=== PATIENT | female | born 1945 | race African-American/Black ===

== ENCOUNTER → 2017-05-05 | Outpatient (CLI) | payer MEDICARE ==
--- NOTE | 2017-05-05 12:49 | RADIOLOGY REPORT (SQ) ---
EXAM DESCRIPTION: CHEST PA/LATERAL COMPLETED DATE/TIME: 05/05/2017 12:34 pm REASON FOR STUDY: COUGH COMPARISON: None. EXAM PARAMETERS: NUMBER OF VIEWS: two views TECHNIQUE: Digital Frontal and Lateral radiographic views of the chest acquired. RADIATION DOSE: NA LIMITATIONS: none FINDINGS: LUNGS AND PLEURA: Lungs are hyperlucent in the upper lobes worrisome for obstructive disea se. There is some flattening of the hemidiaphragms. No focal infiltrates. No pleural effusions. N o pneumothorax. MEDIASTINUM AND HILAR STRUCTURES: No masses or contour abnormalities. HEART AND VASCULAR STRUCTURES: Heart normal size. No evidence for failure. BONES: No acute findings. HARDWARE: Old sternotomy post CABG OTHER: No other significant finding. IMPRESSION: Obstructive lung disease. Old sternotomy post CABG. TECHNICAL DOCUMENTATION: JOB ID: [id number] [employer]- All Rights Reserved
== END ==
LOC: OD 12:19
PROVIDERS: ATTEND Family Medicine
DX: R05 Cough (principal); J44.9 Chronic obstructive pulmonary disease, unspecified; Z95.1 Presence of aortocoronary bypass graft
CPT/HCPCS: 71020

== ENCOUNTER → 2017-06-09 | Outpatient (CLI) | payer MEDICARE ==
--- NOTE | 2017-06-09 15:50 | RADIOLOGY REPORT (SQ) ---
EXAM DESCRIPTION: CAROTID DOPPLER COMPLETED DATE/TIME: 06/09/2017 3:30 pm REASON FOR STUDY: RETINAL ARTERY OCCLUSION LEFT EYE H34.212 H34.212 PARTIAL RETINAL ARTERY OCCLUSIO N, LEFT EYE COMPARISON: None. TECHNIQUE: Grayscale ultrasound, Doppler velocity and spectra, and color Doppler images acquired of the extra-cranial carotid and vertebral arteries. Images stored on PACS. LIMITATIONS: None. FINDINGS: RIGHT CAROTID CCA Velocities: Within normal limits. ICA Velocities Peak systolic 0.73 m/s. End diastolic 0.28 m/s. Proximal ICA/CCA peak systolic ratio 0.9. There is complex plaque in the carotid bulb proximal ICA. LEFT CAROTID CCA Velocities: Within normal limits. ICA Velocities Peak systolic 0.99 m/s. End diastolic 0.21 m/s. Proximal ICA/CCA peak systolic ratio 0.6. There is complex plaque in the carotid bulb and proximal ICA. VERTEBRAL ARTERIES: Antegrade flow. Normal waveforms. SUBCLAVIAN ARTERIES: No finding. OTHER: No other significant finding. IMPRESSION: NO HEMODYNAMICALLY SIGNIFICANT STENOSIS. COMMENT: Quality ID #[id number]: Velocity criteria are extrapolated from the diameter data as defined by t he Society of Radiologists in Ultrasound Consensus Conference. Radiology 2003: 229; 340-346. TECHNICAL DOCUMENTATION: JOB ID: [id number] [employer]- All Rights Reserved
== END ==
LOC: SP 14:42
PROVIDERS: ATTEND Ophthalmology
DX: H34.212 Partial retinal artery occlusion, left eye (principal)
CPT/HCPCS: 93880

== ENCOUNTER → 2017-07-07 | Outpatient (CLI) | payer MEDICARE ==
--- NOTE | 2017-07-07 08:47 | RADIOLOGY REPORT (SQ) ---
EXAM DESCRIPTION: CT HEAD WITHOUT COMPLETED DATE/TIME: 07/07/2017 8:12 am REASON FOR STUDY: HEADACHE R51 HEADACHE COMPARISON: Carotid Doppler 06/09/2017 TECHNIQUE: Axial images acquired through the brain without intravenous contrast. Images reviewed wi th bone, brain and subdural windows. Images stored on PACS. All CT scanners at this facility use dose modulation, iterative reconstruction, and/or weight based d osing when appropriate to reduce radiation dose to as low as reasonably achievable (ALARA). [facility]: Dose Right [facility]: CareDose [facility]: Dose Right [facility]: Teradose 4D [facility]: Smart Roadster RADIATION DOSE: Up-to-date CT equipment and radiation dose reduction techniques were employed. CTDIv ol: 49.0 mGy. DLP: 881 mGy-cm. mGy. LIMITATIONS: None. FINDINGS: VENTRICLES: Normal size and contour. CEREBRUM: Extensive low attenuation in the bifrontal and biparietal white matter worrisome for advanc ed small vessel ischemic change, chronic in appearance. 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 No CT evidence of acute large territory infarct, acute intracranial hemorrhage, mass effect, or midli ne shift. CEREBELLUM: No masses. No hemorrhage. No alteration of density. No evidence for acute infarction. EXTRAAXIAL SPACES: No fluid collections. No masses. ORBITS AND GLOBE: No intra- or extraconal masses. Normal contour of globe without masses. CALVARIUM: No fracture. PARANASAL SINUSES: Minimal fluid in the right maxillary sinus SOFT TISSUES: No mass or hematoma. OTHER: No other significant finding. IMPRESSION: Advanced probably chronic white matter disease. No acute findings TECHNICAL DOCUMENTATION: JOB ID: [id number] Quality ID # [id number]: Final reports with documentation of one or more dose reduction techniques (e.g., Au tomated exposure control, adjustment of the mA and/or kV according to patient size, use of iterative reconstruction technique) 2010 [employer]- All Rights Reserved
== END ==
LOC: RAD 08:02
PROVIDERS: ATTEND Family Medicine
DX: R51 Headache (principal)
CPT/HCPCS: 70450

== ENCOUNTER → 2017-07-21 | Outpatient (CLI) | payer MEDICARE ==
--- NOTE | 2017-07-21 12:18 | RADIOLOGY REPORT (SQ) ---
EXAM DESCRIPTION: U/S ABD AORTIC SCREENING COMPLETED DATE/TIME: 07/21/2017 9:43 am REASON FOR STUDY: ENCOUNTER FOR SCREENING FOR CARDIOVASCULAR DISORDERS (Z13.6) G45.3 AMAUROSIS FUGA X Z13.6 ENCOUNTER FOR SCREENING FOR CARDIOVASCULAR DISORDERS COMPARISON: None. TECHNIQUE: Static and dynamic grayscale images acquired of the aorta and stored on PACs. Selected co dasha Doppler and spectral images recorded. LIMITATIONS: None. FINDINGS: AORTIC CALIBER MAXIMAL PROXIMAL: 2.1 cm. MID: 1.8 cm. DISTAL: 1.3 cm. ILIAC DIAMETER RIGHT: Not visualized cm. LEFT: Not visual cm. OTHER: No other significant finding. IMPRESSION: NO ABDOMINAL AORTIC ANEURYSM. TECHNICAL DOCUMENTATION: JOB ID: [id number] [employer]- All Rights Reserved
== END ==
LOC: RAD 07:55
PROVIDERS: ATTEND Internal Medicine Cardiovascular Disease
DX: Z13.6 Encounter for screening for cardiovascular disorders (principal); Z87.891 Personal history of nicotine dependence
CPT/HCPCS: 76706

== ENCOUNTER 2017-07-28 02:11 | Emergency (ER) | payer MEDICARE ==
[2017-07-28 02:24] VITALS: BP 113/63
[2017-07-28] MEDS ORDERED: ONDANSETRON HCL INJ/PF 4 MG/2 ML SDV IV ONE ×2 (02:24→03:06)
[2017-07-28] MEDS ORDERED: MORPHINE SULFATE 10 MG/ML INJ IV PRN (02:24)
[2017-07-28] MEDS ORDERED: KETOROLAC TROMETHAMINE INJ/PF 30 MG/1 ML SDV IV ONE (02:24)
[2017-07-28] MEDS ORDERED: TRAMADOL HCL 50 MG TABLET PO ONE (03:07)
[2017-07-28] MEDS ORDERED: NORMAL SALINE 500 ML IV ONE (03:07)
--- NOTE | 2017-07-28 03:13 | ER Document Report ---
ED General - General Chief Complaint: Flank Pain Stated Complaint: BACK PAIN Time Seen by Provider: 07/28/17 03:00 Notes: Patient is a 71-year-old female who presents with complaint of right low back pain. Has been on the for 2 weeks. Seem to start when she started having a lot of coughing. She also has some nausea but no vomiting. No dysuria but she has been urinating less than usual. She did see her doctor and he did obtain blood work and she supposed to follow-up in the morning for results of the test to be reevaluated. She denies any fevers. No dysuria. No abdominal pain. No pain down her legs. No other complaints at this time. No trauma. TRAVEL OUTSIDE OF THE [place] IN LAST 30 DAYS: No - Related Data Allergies/Adverse Reactions: Penicillins Allergy (Verified 07/28/17 03:59) Past Medical History - Social History Smoking Status: Unknown if Ever Smoked Frequency of alcohol use: None Drug Abuse: None Family History: Reviewed & Not Pertinent Patient has suicidal ideation: No Patient has homicidal ideation: No Renal/ Medical History: Denies: Hx Peritoneal Dialysis Review of Systems - Review of Systems Notes: My Normal Review Basic REVIEW OF SYSTEMS: CONSTITUTIONAL : Denies fever, chills, or sweats. Denies recent illness. EENT: Denies eye, ear, throat, or mouth pain or symptoms. Denies nasal or sinus congestion. CARDIOVASCULAR: Denies chest pain. RESPIRATORY: recurrent cough GASTROINTESTINAL: Denies abdominal pain. Denies nausea, vomiting, or diarrhea. GENITOURINARY: Denies difficulty urinating, painful urination, burning, frequency, or blood in urine. MUSCULOSKELETAL: Low back pain. SKIN: Denies rash or skin lesions. NEUROLOGICAL: Denies altered mental status or loss of consciousness. Denies headache. Denies weakness or paralysis or loss of use of either side. Denies problems with gait or speech. Denies sensory or motor loss. ALL OTHER SYSTEMS REVIEWED AND NEGATIVE. Physical Exam - Vital signs Vitals: Temp Pulse Resp BP Pulse Ox 97.8 F 90 16 113/63 98 07/28/17 02:19 07/28/17 02:19 07/28/17 02:19 07/28/17 02:19 07/28/17 02:19 - Notes Notes: General Appearance: Well nourished, alert, cooperative, no acute distress, moderate obvious discomfort. Vitals: reviewed, See vital signs table. Head: no swelling or tenderness to the head Eyes: PERRL, EOMI, Conjuctiva clear Mouth: No decreasd moisture Neck: Supple, no neck tenderness, Lungs: No wheezing, No rales, No rhonci, No accessory muscle use, good air exchange bilaterally. Heart: Normal rate, Regular rythm, No murmur, no rub Abdomen: Normal BS, soft, No rigidity, No abdominal tenderness, No guarding, no rebound, no abdominal masses, Back: Pinpoint area of tenderness over the right lower back flank area. There is very tender to palpation. Remainder of back is nontender. No shingles or rash-like lesions. Extremities: strength 5/5 in all extremities, good pulses in all extremities, no swelling or tenderness in the extremities, no edema. Skin: warm, dry, appropriate color, no rash Neuro: speech clear, oriented x 3, normal affect, responds appropriately to questions. Course - Re-evaluation Re-evalutation: 07/28/17 06:44 Patient has pinpoint back pain is seems very muscular skeletal on exam. Patient 's pain is easily reproducible palpation. Easily reproducible with movement. Pain was greatly improved with Ultram and she feels much improved. She does have a mild UTI. There is no blood in her urine. There is no pain radiating around her flank or into the anterior abdomen. I think kidney stone is highly unlikely. She has no leukocytosis and no fever. I will place her on pain medication as well as antibiotic. She has an appointment to follow-up with her doctor today. Patient encouraged to return to ER if she has fevers, recurrent vomiting, worsening pain, or feels unwell. Patient and family agree with plan and she will be discharged home. Dictation of this chart was performed using voice recognition software; therefore, there may be some unintended grammatical errors. - Vital Signs Vital signs: Temp Pulse Resp BP Pulse Ox 97.8 F 90 16 113/63 98 07/28/17 02:19 07/28/17 02:19 07/28/17 02:19 07/28/17 02:19 07/28/17 02:19 - Laboratory Result Diagrams: 07/28/17 03:35 07/28/17 03:35 Laboratory results interpreted by me: 07/28/17 07/28/17 07/28/17 03:35 03:35 05:14 RBC 3.53 L Hgb 10.8 L Hct 31.8 L Sodium 145.6 H Chloride 112 H Carbon Dioxide 21 L BUN 31 H Creatinine 1.46 H Est GFR ( Amer) 43 L Est GFR (Non-Af Amer) 35 L Glucose 111 H Direct Bilirubin 0.5 H Urine Urobilinogen 2.0 H Ur Leukocyte Esterase LARGE H Discharge - Discharge Clinical Impression: Nausea Back pain Qualifiers: Back pain location: low back pain Chronicity: acute Back pain laterality: right Sciatica presence: without sciatica Qualified Code(s): M54.5 - Low back pain UTI (urinary tract infection) Qualifiers: Urinary tract infection type: site unspecified Hematuria presence: without hematuria Qualified Code(s): N39.0 - Urinary tract infection, site not specified Condition: Good Disposition: HOME, SELF-CARE Additional Instructions: I suspect that most of your pain is related to the muscle in your back being that it is worse with coughing, movement, and palpation. Your urine does show some signs of infection. We will place you on an antibiotic on Cipro to help with treatment. It is extremely important that you return to the ER immediately if you develop worsening pain, fevers, vomiting, or feel unwell. The pain medicine, Ultram, may make you a little drowsy. only take this when Tylenol is not working for your pain. Prescriptions: Tramadol HCl [Ultram 50 mg Tablet] 50 mg PO Q6HP PRN #10 tablet PRN Reason: Ciprofloxacin HCl [Cipro 500 mg Tablet] 500 mg PO BID #14 tablet Ondansetron [Zofran Odt 4 mg Tablet] 1 tab PO Q4H PRN #15 tab.rapdis PRN Reason: For Nausea/Vomiting Referrals: MONI FINN MD [Primary Care Provider] - 07/28/17
[2017-07-28 03:50] LABS: ABSOLUTE BASOPHILS # (AUTO) 0.1 10^3/uL (0.0-0.2); ABSOLUTE EOSINOPHILS # (AUTO) 0.1 10^3/uL (0.0-0.6); ABSOLUTE LYMPHOCYTES (AUTO) 2.4 10^3/uL (0.5-4.7); ABSOLUTE NEUT (AUTO) 6.1 10^3/uL (1.7-8.2); BASOPHILS % (AUTO) 1.4 % (0-2); EOSINOPHILS % (AUTO) 1.2 % (0-6); HEMATOCRIT 31.8 % (36.0-47.0); HEMOGLOBIN 10.8 g/dL (12.0-15.5); HGB HCT DIFFERENCE 0.6; LYMPHOCYTES % (AUTO) 24.9 % (13-45); MEAN CORPUSCULAR HEMOGLOBIN 30.5 pg (27.0-33.4); MEAN CORPUSCULAR HGB CONC 33.8 g/dL (32.0-36.0); MEAN CORPUSCULAR VOLUME 90 fl (80-97); RED BLOOD COUNT 3.53 10^6/uL (3.72-5.28); RED CELL DISTRIBUTION WIDTH 13.9 % (11.5-14.0); SEGMENTED NEUTROPHILS % (AUTO) 62.5 % (42-78); WHITE BLOOD COUNT 9.7 10^3/uL (4.0-10.5)
[2017-07-28 04:02] LABS: ALANINE AMINOTRANSFERASE 18 U/L (9-52); ALBUMIN 3.8 g/dL (3.5-5.0); ALKALINE PHOSPHATASE 109 U/L (38-126); ANION GAP 13 (5-19); ASPARTATE AMINO TRANSFERASE 35 U/L (14-36); BILIRUBIN,DIRECT 0.5 mg/dL (0.0-0.4); BILIRUBIN,TOTAL 0.6 mg/dL (0.2-1.3); BLOOD UREA NITROGEN 31 mg/dL (7-20); CALCIUM 9.6 mg/dL (8.4-10.2); CARBON DIOXIDE 21 mmol/L (22-30); CHLORIDE 112 mmol/L (98-107); CREATININE RESULT 1.46 mg/dL (0.52-1.25); GLUCOSE 111 mg/dL (75-110); POTASSIUM 3.6 mmol/L (3.6-5.0); SODIUM 145.6 mmol/L (137-145); TOTAL PROTEIN 6.8 g/dL (6.3-8.2)
--- NOTE | 2017-07-28 04:40 | RADIOLOGY REPORT (SQ) ---
EXAM DESCRIPTION: CHEST PA/LAT COMPLETED DATE/TIME: 07/28/2017 4:23 am REASON FOR STUDY: cough COMPARISON: 05/05/2017 EXAM PARAMETERS: NUMBER OF VIEWS: two views TECHNIQUE: Digital Frontal and Lateral radiographic views of the chest acquired. RADIATION DOSE: NA LIMITATIONS: none FINDINGS: LUNGS AND PLEURA: Moderate interstitial markings. Small left basilar atelectasis or scar. MEDIASTINUM AND HILAR STRUCTURES: No masses or contour abnormalities. HEART AND VASCULAR STRUCTURES: Heart normal size. No evidence for failure. BONES: No acute findings. Mild osteoarthritis. HARDWARE: None in the chest. OTHER: No other significant finding. IMPRESSION: Small left basilar atelectasis or scar. Moderate chronic interstitial lung disease wm cartagena. TECHNICAL DOCUMENTATION: JOB ID: [id number] [employer]- All Rights Reserved
[2017-07-28 05:43] LABS: APPEARANCE,URINE SLIGHTLY-CLOUDY; BILIRUBIN,URINE NEGATIVE (NEGATIVE); GLUCOSE, URINE NEGATIVE (NEGATIVE); KETONES,URINE NEGATIVE (NEGATIVE); LEUKOCYTE ESTERASE,URINE LARGE (NEGATIVE); NITRITE,URINE NEGATIVE (NEGATIVE); PROTEIN,URINE NEGATIVE (NEGATIVE); URINE SPECIFIC GRAVITY 1.016
[2017-07-28] MEDS ORDERED: CIPROFLOXACIN HCL 500 MG TABLET PO ONE (06:12)
[2017-07-28] MEDS ORDERED: ONDANSETRON ODT 4 MG TAB (6 TAB/DSPK) PO PRN (06:32)
== END 2017-07-28 07:00 | disposition home or self-care (01) ==
LOC: ER 02:11
DX: N39.0 Urinary tract infection, site not specified (principal); M54.5 Low back pain; R11.0 Nausea
CPT/HCPCS: 99284; 96374; 36415; 87086; 85025; 80053; 81001; 71020; A9270 ×3; J2405; J7040

== ENCOUNTER → 2017-08-10 | Outpatient (CLI) | payer MEDICARE ==
[2017-08-10 09:53] LABS: ALANINE AMINOTRANSFERASE 18 U/L (9-52); ALBUMIN 3.7 g/dL (3.5-5.0); ALKALINE PHOSPHATASE 107 U/L (38-126); ASPARTATE AMINO TRANSFERASE 16 U/L (14-36); BILIRUBIN,DIRECT 0.4 mg/dL (0.0-0.4); BILIRUBIN,TOTAL 0.9 mg/dL (0.2-1.3); CHOLESTEROL 162.41 mg/dL (0-200); Direct HDL 49 mg/dL (>40); TOTAL PROTEIN 6.7 g/dL (6.3-8.2); TRIGLYCERIDES 121 mg/dL (<150)
[2017-08-10 10:04] LABS: DIRECT LDL 74 mg/dL (<100)
== END ==
LOC: OD 08:32
PROVIDERS: ATTEND Internal Medicine Cardiovascular Disease
DX: E78.00 Pure hypercholesterolemia, unspecified (principal); Z79.899 Other long term (current) drug therapy
CPT/HCPCS: 36415; 80061; 80076; 82272

== ENCOUNTER 2019-04-12 17:04 | Observation (INO) | payer MEDICARE, MEDICAID ==
[2019-04-12] MEDS ORDERED: ASPIRIN 81 MG TABLET, CHEWABLE PO ONE (17:55)
--- NOTE | 2019-04-12 17:57 | ER Document Report ---
ED Medical Screen (RME) - General Chief Complaint: Chest Pain Stated Complaint: CHEST PAIN Time Seen by Provider: 04/12/19 17:55 Primary Care Provider: YOU SCHAFER MD [Primary Care Provider] - Follow up as needed Mode of Arrival: Ambulatory Information source: Patient Notes: 73-year-old female presented to ED for chest pain since morning. She states it radiates around to the back. She denies any shortness of breath any dizziness any dyspnea or any diaphoresis. She states she has not had any aspirin today. She does have a history of high blood pressure and cholesterol. She denies any previous heart attacks. She states she smokes a pack a day but does not drink smoke or use any drugs. She denies any previous surgical history. She is alert oriented respirations regular and unlabored speaking in full sentences. I have greeted and performed a rapid initial assessment of this patient. A comprehensive ED assessment and evaluation of the patient, analysis of test results and completion of medical decision making process will be conducted by an additional ED providers. Dictation of this chart was performed using voice recognition software; therefore, there may be some unintended grammatical errors. TRAVEL OUTSIDE OF THE [place] IN LAST 30 DAYS: No - Related Data Allergies/Adverse Reactions: Penicillins Allergy (Verified 07/28/17 03:59) Past Medical History Renal/ Medical History: Denies: Hx Peritoneal Dialysis Physical Exam - Vital signs Vitals: Temp Pulse Resp BP Pulse Ox 98.6 F 60 18 152/60 H 99 04/12/19 17:25 04/12/19 17:25 04/12/19 17:25 04/12/19 17:25 04/12/19 17:25 Course - Vital Signs Vital signs: Temp Pulse Resp BP Pulse Ox 98.6 F 60 18 152/60 H 99 04/12/19 17:25 04/12/19 17:25 04/12/19 17:25 04/12/19 17:25 04/12/19 17:25 Doctor's Discharge - Discharge Referrals: YOU SCHAFER MD [Primary Care Provider] - Follow up as needed
--- NOTE | 2019-04-12 18:43 | RADIOLOGY REPORT (SQ) ---
EXAM DESCRIPTION: CHEST 2 VIEWS COMPLETED DATE/TIME: 04/12/2019 6:23 pm REASON FOR STUDY: Chest pain, denies shortness of breath. Radiates COMPARISON: 07/28/2017 EXAM PARAMETERS: NUMBER OF VIEWS: two views TECHNIQUE: Digital Frontal and Lateral radiographic views of the chest acquired. RADIATION DOSE: NA LIMITATIONS: none FINDINGS: LUNGS AND PLEURA: No opacities, masses or pneumothorax. No pleural effusion. MEDIASTINUM AND HILAR STRUCTURES: No masses or contour abnormalities. HEART AND VASCULAR STRUCTURES: Heart normal size. No evidence for failure. BONES: No acute findings. HARDWARE: Sternotomy wires are in place. OTHER: No other significant finding. IMPRESSION: NO ACUTE RADIOGRAPHIC FINDING IN THE CHEST. TECHNICAL DOCUMENTATION: JOB ID: [id number] [employer]- All Rights Reserved Reading location - IP/workstation name: [email or web address]
[2019-04-12 19:46] LABS: ABSOLUTE BASOPHILS # (AUTO) 0.1 10^3/uL (0.0-0.2); ABSOLUTE EOSINOPHILS # (AUTO) 0.1 10^3/uL (0.0-0.6); ABSOLUTE LYMPHOCYTES (AUTO) 2.6 10^3/uL (0.5-4.7); ABSOLUTE MONOCYTES (AUTO) 0.8 10^3/uL (0.1-1.4); BASOPHILS % (AUTO) 0.6 % (0-2); EOSINOPHILS % (AUTO) 1.2 % (0-6); HEMOGLOBIN 11.9 g/dL (12.0-15.5); LYMPHOCYTES % (AUTO) 30.5 % (13-45); MEAN CORPUSCULAR HEMOGLOBIN 30.2 pg (27.0-33.4); MEAN CORPUSCULAR VOLUME 91 fl (80-97); MONOCYTES % (AUTO) 8.9 % (3-13); PLATELET COUNT 351 10^3/uL (150-450); RED BLOOD COUNT 3.94 10^6/uL (3.72-5.28); SEGMENTED NEUTROPHILS % (AUTO) 58.8 % (42-78); TOTAL CELLS COUNTED % (AUTO) 100 %; WHITE BLOOD COUNT 8.6 10^3/uL (4.0-10.5)
[2019-04-12 19:49] LABS: APPEARANCE,URINE CLEAR; BILIRUBIN,URINE NEGATIVE (NEGATIVE); COLOR,URINE STRAW; GLUCOSE, URINE NEGATIVE (NEGATIVE); KETONES,URINE NEGATIVE (NEGATIVE); LEUKOCYTE ESTERASE,URINE NEGATIVE (NEGATIVE); NITRITE,URINE NEGATIVE (NEGATIVE); PROTEIN,URINE NEGATIVE (NEGATIVE); UROBILINOGEN,URINE NEGATIVE mg/dL (<2.0)
[2019-04-12 20:09] LABS: ALANINE AMINOTRANSFERASE 17 U/L (9-52); ALBUMIN 4.1 g/dL (3.5-5.0); ALKALINE PHOSPHATASE 114 U/L (38-126); ANION GAP 8 (5-19); ASPARTATE AMINO TRANSFERASE 19 U/L (14-36); BILIRUBIN,DIRECT 0.2 mg/dL (0.0-0.4); BILIRUBIN,TOTAL 0.4 mg/dL (0.2-1.3); BLOOD UREA NITROGEN 14 mg/dL (7-20); CALCIUM 10.2 mg/dL (8.4-10.2); CARBON DIOXIDE 25 mmol/L (22-30); CHLORIDE 113 mmol/L (98-107); GLUCOSE 84 mg/dL (75-110); LIPASE 124.7 U/L (23-300); POTASSIUM 3.9 mmol/L (3.6-5.0); SODIUM 145.8 mmol/L (137-145); TOTAL PROTEIN 7.2 g/dL (6.3-8.2)
[2019-04-12 20:15] LABS: CREATINE KINASE MB 1.46 ng/mL (<4.55)
[2019-04-12 20:38] LABS: TROPONIN I < 0.012 ng/mL
--- NOTE | 2019-04-12 20:46 | ER Document Report ---
ED General - General Chief Complaint: Chest Pain Stated Complaint: CHEST PAIN Time Seen by Provider: 04/12/19 17:55 Primary Care Provider: YOU SCHAFER MD [Primary Care Provider] - Follow up as needed Mode of Arrival: Ambulatory Notes: 73-year-old female with coronary artery disease cardiac stents placed in 2003, hypertension, and hyperlipidemia presents to ED for chest pain since morning. S he states it radiates around to the back on the right side and is now in her left axilla area that moves around to her back. She states it is worse with movement. She did not describe the quality of it.. She denies any shortness of breath but does complain of dyspnea on exertion, denies diaphoresis, denies nausea. Denies headache, dizziness, lightheadedness, abdominal pain, flank pain, urinary symptoms patient is a daily smoker. She received aspirin in triage. No other complaints. TRAVEL OUTSIDE OF THE [place] IN LAST 30 DAYS: No - Related Data Allergies/Adverse Reactions: Penicillins Allergy (Verified 07/28/17 03:59) Past Medical History - General Information source: Patient - Social History Smoking Status: Current Every Day Smoker Family History: Reviewed & Not Pertinent Renal/ Medical History: Denies: Hx Peritoneal Dialysis Review of Systems - Review of Systems Constitutional: See HPI EENT: See HPI Cardiovascular: See HPI Respiratory: See HPI Gastrointestinal: See HPI Genitourinary: See HPI Female Genitourinary: No symptoms reported Musculoskeletal: No symptoms reported Skin: No symptoms reported Hematologic/Lymphatic: No symptoms reported Neurological/Psychological: See HPI Physical Exam - Vital signs Vitals: Temp Pulse Resp BP Pulse Ox 98.6 F 60 18 152/60 H 99 04/12/19 17:25 04/12/19 17:25 04/12/19 17:25 04/12/19 17:25 04/12/19 17:25 - Notes Notes: PHYSICAL EXAMINATION: Reviewed vital signs and charting by RN GENERAL: Alert, interacts well. No acute distress. HEAD: Normocephalic, atraumatic. EYES: Pupils equal and round. Extraocular movements intact. ENT: Oral mucosa moist, tongue midline. NECK: Full range of motion. Supple. Trachea midline. LUNGS: Clear to auscultation bilaterally, no wheezes, rales, or rhonchi. No respiratory distress. HEART: Regular rate and rhythm. No murmur ABDOMEN: soft, non-tender. Non-distended. Bowel sounds present. no McBurney's point tenderness, no Norton sign. EXTREMITIES: Moves all 4 extremities spontaneously. No edema, No cyanosis. Normal distal neurovascular exam BACK: No CVAT NEUROLOGIC: Oriented and appropriate. Normal speech. PSYCH: Normal affect, normal mood. SKIN: Warm, dry, normal turgor. No rashes or lesions noted. Course - Re-evaluation Re-evalutation: 04/12/19 20:44 Overall well-appearing. Patient with reproducible back pain and left axilla pain on movement. Initial troponin negative. Heart score 4 for suspicion factors, age. 04/12/19 20:[address] Khan, hospitalist, who accepted the patient for observation status on telemetry. - Vital Signs Vital signs: Temp Pulse Resp BP Pulse Ox 98.6 F 60 18 152/60 H 99 04/12/19 17:25 04/12/19 17:25 04/12/19 17:25 04/12/19 17:25 04/12/19 17:25 - Laboratory Result Diagrams: 04/12/19 19:30 04/12/19 19:30 Laboratory results interpreted by me: 04/12/19 04/12/19 04/12/19 19:30 19:30 19:30 Hgb 11.9 L RDW 15.0 H Sodium 145.8 H Chloride 113 H Urine Blood SMALL H Discharge - Discharge Clinical Impression: Chest pain Qualifiers: Chest pain type: unspecified Qualified Code(s): R07.9 - Chest pain, unspecified Condition: Stable Disposition: ADMITTED OBSERVATION Admitting Provider: Bill (Hospitalist) Unit Admitted: Telemetry Referrals: YOU SCHAFER MD [Primary Care Provider] - Follow up as needed
[2019-04-12] MEDS ORDERED: ZOLPIDEM TARTRATE 5 MG TABLET PO PRN (21:26)
[2019-04-12] MEDS ORDERED: MAGNESIUM HYDROXIDE SUSP 30 ML UDCUP PO PRN (21:26)
[2019-04-12] MEDS ORDERED: ONDANSETRON HCL INJ/PF 4 MG/2 ML SDV IV PRN (21:26)
[2019-04-12] MEDS ORDERED: MAG HYDROX/AL HYDROX/SIMETH SUSP 30 ML UDCUP PO PRN (21:26)
[2019-04-12] MEDS ORDERED: IBUPROFEN 800 MG TABLET PO PRN (21:30)
[2019-04-12] MEDS ORDERED: LEVALBUTEROL HCL NEB 0.63 MG/3 ML AMPUL NEB PRN (21:30)
[2019-04-12] MEDS ORDERED: HYDRALAZINE HCL INJ/PF 20 MG/1 ML SDV IV PRN (21:30)
[2019-04-12] MEDS ORDERED: MORPHINE SULFATE 10 MG/ML INJ IV PRN ×4 (21:30→21:43)
[2019-04-12] MEDS ORDERED: NICOTINE 21 MG/24 HR PATCH.TD24 TD PRN (21:41)
[2019-04-12] MEDS: FAMOTIDINE 20 MG TABLET PO SCH (22:00)
[2019-04-12] MEDS: HEPARIN SOD (PORCINE) 5,000 UNIT/ML 1 ML SYRINGE SUBCUT SCH (22:01)
[2019-04-13] MEDS: ACETAMINOPHEN 325 MG TABLET PO PRN ×3 (00:32→19:49)
--- NOTE | 2019-04-13 02:03 | PDOC H&P ---
History of Present Illness Admission Date/PCP: 04/12/2019 YOU SCHAFER MD Patient complains of: Chest pain History of Present Illness: WENCESLAO HAYES is a 73 year old female who presented to the emergency room with a 12-hour history of continuous chest pain initially beginning in the right anterior chest moving around gradually throughout the day first to the right shoulder and back and then gradually to the left shoulder and currently to the left side in the axillary area and now radiating into her left and mid back. She describes the pain as a moderate to severe "sharp pain" intensified by movement of her chest, arms or back. She has not identified any ameliorating factors. She notes associated mild swelling of her lower extremities and mild dyspnea with exertion but denies dyspnea at rest. She admits similar prior episodes related to her coronary artery disease. In the emergency room she was found to have negative cardiac enzymes and her EKG showed no evidence of acute myocardial infarction or ischemia. Her chest x-ray and the remainder of her laboratory evaluation were unremarkable. Due to her personal history of coronary artery disease she is admitted to observation status for serial cardiac enzyme testing and serial EKGs. Past Medical History Cardiac Medical History: Reports: Coronary Artery Disease, Myocardial Infarction, Hyperlipidema, Hypertension Denies: Atrial Fibrillation, Congestive Heart Failure Pulmonary Medical History: Denies: Asthma, Chronic Obstructive Pulmonary Disease (COPD) EENT Medical History: Reports: Cataracts, Eyes - Amaurosis fugax left eye Neurological Medical History: Denies: Hemorrhagic CVA, Ischemic CVA, Seizures Endocrine Medical History: Denies: Diabetes Mellitus Type 1, Diabetes Mellitus Type 2 Renal/ Medical History: Denies: Chronic Kidney Disease, Nephrolithiasis Malignancy Medical History: Reports: None GI Medical History: Denies: Cirrhosis, Hepatitis Musculoskeltal Medical History: Denies: Arthritis, Gout Skin Medical History: Denies: Eczema, Psoriasis Psychiatric Medical History: Reports: Tobacco Dependency Denies: Alcohol Dependency, Substance Abuse Traumatic Medical History: Reports: None Hematology: Denies: Anemia, Bleeding Tendencies Infectious Medical History: Reports: None Past Surgical History Past Surgical History: Reports: Cardiac Catheterization, Coronary Stent, Other - Bilateral cataract excision with lens replacement Social History Information Source: Patient Lives with: Alone Smoking Status: Current Every Day Smoker Frequency of Alcohol Use: None Hx Recreational Drug Use: No Drugs: None Hx Prescription Drug Abuse: No - Advance Directive Resuscitation Status: Full Code Surrogate healthcare decision maker:: Bhumi Hayes Family History Family History: Hypertension. denies: CAD, DM, Malignancy Parental Family History Reviewed: Yes Children Family History Reviewed: No Sibling(s) Family History Reviewed.: Yes Medication/Allergy Home Medications: Atorvastatin Calcium [Lipitor 10 mg Tablet] 10 mg PO QHS 04/12/19 Diclofenac Sodium 75 mg PO Q12 04/12/19 Metoprolol Succinate [Toprol Xl 25 mg Tab.sr] 25 mg PO DAILY 04/12/19 Montelukast Sodium [Singulair 10 mg Tablet] 10 mg PO QHS 04/12/19 Allergies/Adverse Reactions: Penicillins Allergy (Verified 07/28/17 03:59) Review of Systems Constitutional: ABSENT: chills, fever(s) Eyes: ABSENT: visual disturbances, other - Ocular pain Ears: ABSENT: hearing changes, other - Ear pain Nose, Mouth, and Throat: ABSENT: mouth pain, sore throat Cardiovascular: PRESENT: as per HPI, chest pain, dyspnea on exertion, edema. ABSENT: orthropnea, palpitations Respiratory: ABSENT: cough, dyspnea Gastrointestinal: ABSENT: abdominal pain, constipation, diarrhea, nausea, vomiting Genitourinary: ABSENT: dysuria, hematuria Musculoskeletal: PRESENT: as per HPI, back pain. ABSENT: joint swelling, muscle weakness Integumentary: ABSENT: pruritus, rash Neurological: ABSENT: confusion, convulsions, focal weakness, memory loss, syncope Psychiatric: ABSENT: anxiety, depression Endocrine: ABSENT: cold intolerance, heat intolerance Hematologic/Lymphatic: ABSENT: easy bleeding, easy bruising Physical Exam Vital Signs: Temp Pulse Resp BP Pulse Ox 98.6 F 60 18 152/60 H 99 04/12/19 17:25 04/12/19 17:25 04/12/19 17:25 04/12/19 17:25 04/12/19 17:25 Intake & Output 04/10/19 04/11/19 04/12/19 23:59 23:59 23:59 Weight 73.4 kg General appearance: PRESENT: no acute distress, cooperative Head exam: PRESENT: atraumatic, normocephalic Eye exam: ABSENT: conjunctival injection, scleral icterus Ear exam: PRESENT: normal external ear exam. ABSENT: bleeding, drainage Mouth exam: PRESENT: dry mucosa, neck supple Neck exam: ABSENT: thyromegaly, tracheal deviation Respiratory exam: PRESENT: decreased breath sounds - Mildly decreased breath sounds throughout all ibarra consistent with mild to moderate COPD, prolonged expiratory phas - Minimally prolonged expiratory phase noted throughout all ibar[place], rhonchi - Few scattered rhonchi present, symmetrical, unlabored, other - Chest pain increased with deep inspiration reproducing the pain of her chief complaint Cardiovascular exam: PRESENT: RRR. ABSENT: clicks, gallop, rubs Pulses: PRESENT: normal radial pulses, normal dorsalis pedis pul Vascular exam: PRESENT: normal capillary refill. ABSENT: pallor GI/Abdominal exam: PRESENT: normal bowel sounds, soft Rectal exam: PRESENT: deferred Extremities exam: PRESENT: pedal edema - Trace bilateral, +1 edema - Trace to 1+ pretibial edema of the bilateral lower extremities.. ABSENT: joint swelling Musculoskeletal exam: PRESENT: full ROM, normal inspection Neurological exam: PRESENT: alert, oriented to person, oriented to place, oriented to time, oriented to situation, CN II-XII grossly intact. ABSENT: motor sensory deficit Psychiatric exam: PRESENT: appropriate affect, normal mood Skin exam: PRESENT: dry, intact, warm. ABSENT: jaundice, rash, urticaria Results Laboratory Results: 04/12/19 19:30 04/12/19 19:30 04/12/19 04/12/19 04/12/19 19:30 19:30 19:30 WBC 8.6 RBC 3.94 Hgb 11.9 L Hct 36.0 MCV 91 MCH 30.2 MCHC 33.0 RDW 15.0 H Plt Count 351 Seg Neutrophils % 58.8 Lymphocytes % 30.5 Monocytes % 8.9 Eosinophils % 1.2 Basophils % 0.6 Absolute Neutrophils 5.0 Absolute Lymphocytes 2.6 Absolute Monocytes 0.8 Absolute Eosinophils 0.1 Absolute Basophils 0.1 Sodium 145.8 H Potassium 3.9 Chloride 113 H Carbon Dioxide 25 Anion Gap 8 BUN 14 Creatinine 0.89 Est GFR ( Amer) > 60 Est GFR (Non-Af Amer) > 60 Glucose 84 Calcium 10.2 Total Bilirubin 0.4 AST 19 ALT 17 Alkaline Phosphatase 114 Total Protein 7.2 Albumin 4.1 Lipase 124.7 Urine Color STRAW Urine Appearance CLEAR Urine pH 5.0 Ur Specific [place] 1.010 Urine Protein NEGATIVE Urine Glucose (UA) NEGATIVE Urine Ketones NEGATIVE Urine Blood SMALL H Urine Nitrite NEGATIVE Ur Leukocyte Esterase NEGATIVE Urine WBC (Auto) 0 Urine RBC (Auto) 1 04/12/19 19:30 CK-MB (CK-2) 1.46 Troponin I < 0.012 Impressions: Chest X-Ray 04/12/19 17:55 IMPRESSION: NO ACUTE RADIOGRAPHIC FINDING IN THE CHEST. Assessment and Plan - Diagnosis (1) Chest pain Qualifiers: Chest pain type: unspecified Qualified Code(s): R07.9 - Chest pain, unspecified Is this a current diagnosis for this admission?: Yes Plan: Patient chest pain be treated with morphine 2 to 4 mg IV every 2 hours as needed for chest pain. For mild to moderate pain she may use Tylenol and/or tramadol. (2) Coronary artery disease Qualifiers: Coronary Disease-Associated Artery/Lesion type: [place] artery [place] vs. transplanted heart: redding heart Associated angina: angina presence unspecified Qualified Code(s): I25.10 - Atherosclerotic heart disease of [place] coronary artery without angina pectoris Is this a current diagnosis for this admission?: Yes Plan: Serial cardiac enzymes will be performed and serial EKGs will be obtained. A thyroid profile and lipid profile will be obtained as part of the evaluation of her coronary artery disease and ongoing treatment. (3) Tobacco use disorder, severe, dependence Is this a current diagnosis for this admission?: Yes Plan: Smoking cessation is advised and counseled briefly. A nicotine patch to be available for the patient's use. (4) Hypernatremia Is this a current diagnosis for this admission?: Yes Plan: Patient's metabolic profile will be reevaluated in the morning to determine the status of her electrolyte balance. (5) HLD (hyperlipidemia) Qualifiers: Hyperlipidemia type: unspecified Qualified Code(s): E78.5 - Hyperlipidemia, unspecified Is this a current diagnosis for this admission?: Yes Plan: Patient will be continued with her current lipid therapy treatment (when confirmed on medication reconciliation) including a cardiac diet. A lipid panel will be obtained to assess the efficacy of current therapy. A thyroid profile will also be obtained due to the relationship between thyroid disease and hyperlipidemia. (6) HTN (hypertension) Qualifiers: Hypertension type: essential hypertension Qualified Code(s): I10 - Essential (primary) hypertension Is this a current diagnosis for this admission?: Yes Plan: Patient will be continued on her current antihypertensive regiment once it is available per her medication reconciliation. - Time Time Spent with patient: 25-34 minutes Smoking Cessation Education: 3 to 10 minutes Anticipated discharge: Home Within: within 24 hours - Inpatient Certification Based on my medical assessment, after consideration of the patient's comorbidities, presenting symptoms, or acuity I expect that the services needed warrant INPATIENT care.: No I certify that my determination is in accordance with my understanding of Medicare's requirements for reasonable and necessary INPATIENT services [42 CFR 412.3e].: No Medical Necessity: Need Close Monitoring Due to Risk of Patient Decompensation, Need For Continuous Telemetry Monitoring, Need for Pain Control, Risk of Complication if Not Cared For in Hospital
[2019-04-13 02:14] LABS: FREE T3 3.25 pg/mL (2.77-5.27); FREE T4 (FREE THYROXINE) 1.71 ng/dL (0.78-2.19)
[2019-04-13 02:16] LABS: CREATINE KINASE MB 1.21 ng/mL (<4.55)
[2019-04-13 02:20] LABS: TROPONIN I < 0.012 ng/mL
[2019-04-13] MEDS: HEPARIN SOD (PORCINE) 5,000 UNIT/ML 1 ML SYRINGE SUBCUT SCH ×3 (05:31→22:04)
--- NOTE | 2019-04-13 07:31 | EKG REPORT ---
SEVERITY:- ABNORMAL ECG - SINUS RHYTHM LOW VOLTAGE EKG NONSPECIFIC ST-T CHANGES ANTEROLATERAL LEADS UNCHANGED FROM YESTERDAY.. : Confirmed by: Asaf Hollingsworth MD 13-Apr-2019 07:30:48
--- NOTE | 2019-04-13 07:31 | EKG REPORT ---
SEVERITY:- ABNORMAL ECG - SINUS RHYTHM ABNORMAL T, CONSIDER ISCHEMIA, LATERAL LEADS : Confirmed by: Asaf Hollingsworth MD 13-Apr-2019 07:30:59
[2019-04-13 07:33] LABS: HEMATOCRIT 30.9 % (36.0-47.0); HEMOGLOBIN 10.3 g/dL (12.0-15.5); MEAN CORPUSCULAR HGB CONC 33.4 g/dL (32.0-36.0); MEAN CORPUSCULAR VOLUME 90 fl (80-97); PLATELET COUNT 299 10^3/uL (150-450); RED BLOOD COUNT 3.44 10^6/uL (3.72-5.28); RED CELL DISTRIBUTION WIDTH 15.4 % (11.5-14.0)
[2019-04-13 07:56] LABS: ANION GAP 7 (5-19); BLOOD UREA NITROGEN 16 mg/dL (7-20); CALCIUM 9.3 mg/dL (8.4-10.2); CARBON DIOXIDE 22 mmol/L (22-30); CHLORIDE 114 mmol/L (98-107); CREATINE KINASE 151 U/L (30-135); GLUCOSE 94 mg/dL (75-110); POTASSIUM 3.7 mmol/L (3.6-5.0); SODIUM 143.3 mmol/L (137-145); TRIGLYCERIDES 119 mg/dL (<150)
[2019-04-13 08:06] LABS: CREATINE KINASE MB 0.98 ng/mL (<4.55)
[2019-04-13 08:07] LABS: DIRECT LDL 119 mg/dL (<100); TROPONIN I < 0.012 ng/mL
[2019-04-13] MEDS: TRAMADOL HCL 50 MG TABLET PO PRN ×2 (10:01→18:04)
[2019-04-13] MEDS: DOCUSATE SODIUM 100 MG CAPSULE PO SCH ×2 (10:02→18:05)
[2019-04-13] MEDS: FAMOTIDINE 20 MG TABLET PO SCH ×2 (10:02→22:05)
--- NOTE | 2019-04-13 12:24 | PDOC PROGRESS REPORT ---
Subjective Progress Note for:: 04/13/19 Subjective:: BRAD HAYES is a 73 year old female who presented to the emergency room with a 12-hour history of continuous chest pain initially beginning in the right anterior chest moving around gradually throughout the day first to the right shoulder and back and then gradually to the left shoulder and currently to the left side in the axillary area and now radiating into her left and mid back. She describes the pain as a moderate to severe "sharp pain" intensified by move ment of her chest, arms or back. She has not identified any ameliorating factors. She notes associated mild swelling of her lower extremities and mild dyspnea with exertion but denies dyspnea at rest. She admits similar prior episodes related to her coronary artery disease. In the emergency room she was found to have negative cardiac enzymes and her EKG showed no evidence of acute myocardial infarction or ischemia. Her chest x-ray and the remainder of her laboratory evaluation were unremarkable. Due to her personal history of coronary artery disease she is admitted to observation status for serial cardiac enzyme testing and serial EKGs. 04/13/2019. No acute events overnight. She has not had recurrence of her chest pain however she is stating that she her chest pain is constant, sharp, worse with movement and coughing, today was on the right side and moved to the left side and radiating to the left shoulder. Denies any fever, cough, chills, nausea, vomiting, diarrhea, constipation or any urinary symptoms. SBP 50905, T-max 98.5, pulse 70s, RR 14-23, SPO2 100% on RA. WBC 7.0, hemoglobin 10.3, platelets 299, sodium 143, potassium 3.7, bicarb 22, creatinine 1.10, troponins < 0.0122, Reason For Visit: CHEST PAIN Physical Exam Vital Signs: Temp Pulse Resp BP Pulse Ox 98.5 F 69 17 111/55 L 99 04/13/19 03:43 04/13/19 03:43 04/13/19 03:43 04/13/19 03:43 04/13/19 03:43 Intake & Output 04/12/19 04/13/19 04/14/19 06:59 06:59 06:59 Intake Total 320 Balance 320 Weight 75.2 kg General appearance: PRESENT: obese Head exam: PRESENT: atraumatic, normocephalic Respiratory exam: PRESENT: clear to auscultation dago. ABSENT: rales, rhonchi, wheezes Cardiovascular exam: PRESENT: RRR, other - Chest wall tenderness bilaterally.. ABSENT: diastolic murmur, rubs, systolic murmur GI/Abdominal exam: PRESENT: normal bowel sounds, soft. ABSENT: distended, guarding, mass, organolmegaly, rebound, tenderness Extremities exam: PRESENT: full ROM. ABSENT: calf tenderness, clubbing, pedal edema Neurological exam: PRESENT: alert, awake, oriented to person, oriented to place, oriented to time, oriented to situation, CN II-XII grossly intact. ABSENT: motor sensory deficit Results Laboratory Results: 04/13/19 07:02 04/13/19 07:02 04/12/19 04/12/19 04/12/19 19:30 19:30 19:30 WBC 8.6 RBC 3.94 Hgb 11.9 L Hct 36.0 MCV 91 MCH 30.2 MCHC 33.0 RDW 15.0 H Plt Count 351 Seg Neutrophils % 58.8 Lymphocytes % 30.5 Monocytes % 8.9 Eosinophils % 1.2 Basophils % 0.6 Absolute Neutrophils 5.0 Absolute Lymphocytes 2.6 Absolute Monocytes 0.8 Absolute Eosinophils 0.1 Absolute Basophils 0.1 Sodium 145.8 H Potassium 3.9 Chloride 113 H Carbon Dioxide 25 Anion Gap 8 BUN 14 Creatinine 0.89 Est GFR ( Amer) > 60 Est GFR (Non-Af Amer) > 60 Glucose 84 Calcium 10.2 Magnesium Total Bilirubin 0.4 AST 19 ALT 17 Alkaline Phosphatase 114 Total Protein 7.2 Albumin 4.1 Triglycerides Cholesterol LDL Cholesterol Direct VLDL Cholesterol HDL Cholesterol Lipase 124.7 TSH Free T4 Free T3 pg/mL Urine Color STRAW Urine Appearance CLEAR Urine pH 5.0 Ur Specific [place] 1.010 Urine Protein NEGATIVE Urine Glucose (UA) NEGATIVE Urine Ketones NEGATIVE Urine Blood SMALL H Urine Nitrite NEGATIVE Ur Leukocyte Esterase NEGATIVE Urine WBC (Auto) 0 Urine RBC (Auto) 1 04/13/19 04/13/19 04/13/19 01:21 07:02 07:02 WBC 7.0 RBC 3.44 L Hgb 10.3 L Hct 30.9 L MCV 90 MCH 30.0 MCHC 33.4 RDW 15.4 H Plt Count 299 Seg Neutrophils % Lymphocytes % Monocytes % Eosinophils % Basophils % Absolute Neutrophils Absolute Lymphocytes Absolute Monocytes Absolute Eosinophils Absolute Basophils Sodium 143.3 Potassium 3.7 Chloride 114 H Carbon Dioxide 22 Anion Gap 7 BUN 16 Creatinine 1.10 Est GFR ( Amer) 59 L Est GFR (Non-Af Amer) 49 L Glucose 94 Calcium 9.3 Magnesium 2.0 Total Bilirubin AST ALT Alkaline Phosphatase Total Protein Albumin Triglycerides 119 Cholesterol 195.70 LDL Cholesterol Direct 119 H VLDL Cholesterol 24.0 HDL Cholesterol 44 Lipase TSH Free T4 1.71 Free T3 pg/mL 3.25 Urine Color Urine Appearance Urine pH Ur Specific [place] Urine Protein Urine Glucose (UA) Urine Ketones Urine Blood Urine Nitrite Ur Leukocyte Esterase Urine WBC (Auto) Urine RBC (Auto) 04/13/19 07:02 WBC RBC Hgb Hct MCV MCH MCHC RDW Plt Count Seg Neutrophils % Lymphocytes % Monocytes % Eosinophils % Basophils % Absolute Neutrophils Absolute Lymphocytes Absolute Monocytes Absolute Eosinophils Absolute Basophils Sodium Potassium Chloride Carbon Dioxide Anion Gap BUN Creatinine Est GFR ( Amer) Est GFR (Non-Af Amer) Glucose Calcium Magnesium Total Bilirubin AST ALT Alkaline Phosphatase Total Protein Albumin Triglycerides Cholesterol LDL Cholesterol Direct VLDL Cholesterol HDL Cholesterol Lipase TSH 0.84 Free T4 Free T3 pg/mL Urine Color Urine Appearance Urine pH Ur Specific [place] Urine Protein Urine Glucose (UA) Urine Ketones Urine Blood Urine Nitrite Ur Leukocyte Esterase Urine WBC (Auto) Urine RBC (Auto) 04/12/19 04/13/19 04/13/19 19:30 01:21 01:21 Creatine Kinase 186 H CK-MB (CK-2) 1.46 1.21 Troponin I < 0.012 < 0.012 04/13/19 04/13/19 07:02 07:02 Creatine Kinase 151 H CK-MB (CK-2) 0.98 Troponin I < 0.012 Impressions: Chest X-Ray 04/12/19 17:55 IMPRESSION: NO ACUTE RADIOGRAPHIC FINDING IN THE CHEST. Assessment and Plan - Diagnosis (1) Chest pain Qualifiers: Chest pain type: unspecified Qualified Code(s): R07.9 - Chest pain, unspecified Is this a current diagnosis for this admission?: Yes Plan: Most likely noncardiac however she has HEART Score 4 04/13/2019: SBP 97715, T-max 98.5, pulse 70s, RR 14-23, SPO2 100% on RA. Troponins < 0.0122, DAPT, beta-blockers, MANOLO, supplemental oxygen, PRN morphine, sublingual nitrates. Will order stress test for further risk stratification. (2) HLD (hyperlipidemia) Qualifiers: Hyperlipidemia type: unspecified Qualified Code(s): E78.5 - Hyperlipidemia, unspecified Is this a current diagnosis for this admission?: Yes Plan: ASCVD Score 18.4% Start high intensity statins. Continue diet and lifestyle modification. TSH/T3/T4 within normal limits. (3) HTN (hypertension) Qualifiers: Hypertension type: essential hypertension Qualified Code(s): I10 - Ess ential (primary) hypertension Is this a current diagnosis for this admission?: Yes Plan: Normotensive, euvolemic. 04/13/2019: SBP 79431, T-max 98.5, pulse 70s, RR 14-23, SPO2 100% on RA. Troponins < 0.0122, Restart home meds, titrate as needed. Outpatient PCP follow-up. (4) Coronary artery disease Qualifiers: Coronary Disease-Associated Artery/Lesion type: [place] artery [place] vs. transplanted heart: [place] heart Associated angina: angina presence unspecified Qualified Code(s): I25.10 - Atherosclerotic heart disease of [place] coronary artery without angina pectoris Is this a current diagnosis for this admission?: Yes Plan: Restart DAPT, beta-blockers, MANOLO, statins. 04/13/2019: SBP 73171, T-max 98.5, pulse 70s, RR 14-23, SPO2 100% on RA. Troponins < 0.0122, Thyroid panel negative. (5) Tobacco use disorder, severe, dependence Is this a current diagnosis for this admission?: Yes Plan: Counseled on quitting. Continue NicoDerm patch.
[2019-04-13 13:51] LABS: TROPONIN I < 0.012 ng/mL
[2019-04-13] MEDS: METOPROLOL TARTRATE 25 MG TABLET PO SCH (22:04)
[2019-04-13] MEDS: IBUPROFEN 400 MG TABLET PO PRN (22:06)
[2019-04-14] MEDS: PANTOPRAZOLE SODIUM 40 MG TABLET.DR PO SCH (05:10)
[2019-04-14] MEDS: HEPARIN SOD (PORCINE) 5,000 UNIT/ML 1 ML SYRINGE SUBCUT SCH ×3 (05:10→22:04)
[2019-04-14 06:57] LABS: ABSOLUTE EOSINOPHILS # (AUTO) 0.1 10^3/uL (0.0-0.6); ABSOLUTE LYMPHOCYTES (AUTO) 1.8 10^3/uL (0.5-4.7); ABSOLUTE MONOCYTES (AUTO) 0.5 10^3/uL (0.1-1.4); ABSOLUTE NEUT (AUTO) 2.3 10^3/uL (1.7-8.2); BASOPHILS % (AUTO) 0.9 % (0-2); EOSINOPHILS % (AUTO) 1.7 % (0-6); HEMATOCRIT 30.8 % (36.0-47.0); HEMOGLOBIN 10.4 g/dL (12.0-15.5); LYMPHOCYTES % (AUTO) 38.8 % (13-45); MEAN CORPUSCULAR HEMOGLOBIN 30.4 pg (27.0-33.4); MEAN CORPUSCULAR HGB CONC 33.7 g/dL (32.0-36.0); MEAN CORPUSCULAR VOLUME 90 fl (80-97); MONOCYTES % (AUTO) 10.1 % (3-13); PLATELET COUNT 253 10^3/uL (150-450); RED BLOOD COUNT 3.41 10^6/uL (3.72-5.28); RED CELL DISTRIBUTION WIDTH 15.2 % (11.5-14.0); SEGMENTED NEUTROPHILS % (AUTO) 48.5 % (42-78); TOTAL CELLS COUNTED % (AUTO) 100 %; WHITE BLOOD COUNT 4.7 10^3/uL (4.0-10.5)
[2019-04-14 07:14] LABS: ALANINE AMINOTRANSFERASE 16 U/L (9-52); ALKALINE PHOSPHATASE 83 U/L (38-126); ANION GAP 5 (5-19); ASPARTATE AMINO TRANSFERASE 16 U/L (14-36); BILIRUBIN,DIRECT 0.2 mg/dL (0.0-0.4); BILIRUBIN,TOTAL 0.4 mg/dL (0.2-1.3); BLOOD UREA NITROGEN 16 mg/dL (7-20); CALCIUM 9.2 mg/dL (8.4-10.2); CARBON DIOXIDE 22 mmol/L (22-30); CHLORIDE 115 mmol/L (98-107); GLUCOSE 87 mg/dL (75-110); POTASSIUM 3.9 mmol/L (3.6-5.0); SODIUM 142.2 mmol/L (137-145); TOTAL PROTEIN 5.6 g/dL (6.3-8.2)
[2019-04-14] MEDS ORDERED: METOPROLOL SUCCINATE 25 MG TAB.SR.24H PO SCH (10:00)
[2019-04-14] MEDS ORDERED: LISINOPRIL 5 MG TABLET PO SCH (10:00)
[2019-04-14] MEDS ORDERED: AMLODIPINE BESYLATE 10 MG TABLET PO SCH (10:00)
[2019-04-14] MEDS: DOCUSATE SODIUM 100 MG CAPSULE PO SCH ×2 (10:12→16:59)
[2019-04-14] MEDS: FAMOTIDINE 20 MG TABLET PO SCH ×2 (10:12→22:05)
[2019-04-14] MEDS: METOPROLOL TARTRATE 25 MG TABLET PO SCH ×2 (10:12→21:46)
[2019-04-14] MEDS: ALLOPURINOL 300 MG TABLET PO SCH (10:12)
[2019-04-14] MEDS: LISINOPRIL 5 MG TABLET PO SCH (10:12)
[2019-04-14] MEDS: CLOPIDOGREL BISULFATE 75 MG TABLET PO SCH (10:13)
[2019-04-14] MEDS: ASPIRIN 81 MG TABLET, ENT COATED PO SCH (10:13)
[2019-04-14] MEDS: IBUPROFEN 400 MG TABLET PO PRN ×2 (10:18→22:17)
[2019-04-14] MEDS ORDERED: ONDANSETRON HCL INJ/PF 4 MG/2 ML SDV IV PRN (12:30)
--- NOTE | 2019-04-14 13:13 | PDOC PROGRESS REPORT ---
Subjective Progress Note for:: 04/14/19 Subjective:: BRAD HAYES is a 73 year old female who presented to the emergency room with a 12-hour history of continuous chest pain initially beginning in the right anterior chest moving around gradually throughout the day first to the right shoulder and back and then gradually to the left shoulder and currently to the left side in the axillary area and now radiating into her left and mid back. She describes the pain as a moderate to severe "sharp pain" intensified by move ment of her chest, arms or back. She has not identified any ameliorating factors. She notes associated mild swelling of her lower extremities and mild dyspnea with exertion but denies dyspnea at rest. She admits similar prior episodes related to her coronary artery disease. In the emergency room she was found to have negative cardiac enzymes and her EKG showed no evidence of acute myocardial infarction or ischemia. Her chest x-ray and the remainder of her laboratory evaluation were unremarkable. Due to her personal history of coronary artery disease she is admitted to observation status for serial cardiac enzyme testing and serial EKGs. 04/13/2019. No acute events overnight. She has not had recurrence of her chest pain however she is stating that she her chest pain is constant, sharp, worse with movement and coughing, today was on the right side and moved to the left side and radiating to the left shoulder. Denies any fever, cough, chills, nausea, vomiting, diarrhea, constipation or any urinary symptoms. SBP 60917, T-max 98.5, pulse 70s, RR 14-23, SPO2 100% on RA. WBC 7.0, hemoglobin 10.3, platelets 299, sodium 143, potassium 3.7, bicarb 22, creatinine 1.10, troponins < 0.0122, 04/14/2019. No acute events overnight. Denies any recurrence of chest pain. Denies any fever, chills, nausea, vomiting, diarrhea, constipation or any urinary symptoms. Pending stress test. Reason For Visit: CHEST PAIN Physical Exam Vital Signs: Temp Pulse Resp BP Pulse Ox 98.1 F 70 16 121/53 L 94 04/14/19 08:23 04/14/19 11:19 04/14/19 11:19 04/14/19 08:23 04/14/19 08:23 Intake & Output 04/13/19 04/14/19 04/15/19 06:59 06:59 06:59 Intake Total 320 950 Balance 320 950 Weight 75.2 kg 75.2 kg General appearance: PRESENT: no acute distress, well-developed, well-nourished Head exam: PRESENT: atraumatic, normocephalic Eye exam: PRESENT: conjunctiva pink, EOMI, PERRLA. ABSENT: scleral icterus Ear exam: PRESENT: normal external ear exam Mouth exam: PRESENT: moist, tongue midline Neck exam: ABSENT: carotid bruit, JVD, lymphadenopathy, thyromegaly Respiratory exam: PRESENT: clear to auscultation dago. ABSENT: rales, rhonchi, wheezes Cardiovascular exam: PRESENT: RRR. ABSENT: diastolic murmur, rubs, systolic murmur Pulses: PRESENT: normal dorsalis pedis pul Vascular exam: PRESENT: normal capillary refill GI/Abdominal exam: PRESENT: normal bowel sounds, soft. ABSENT: distended, guarding, mass, organolmegaly, rebound, tenderness Rectal exam: PRESENT: deferred Extremities exam: PRESENT: full ROM. ABSENT: calf tenderness, clubbing, pedal edema Neurological exam: PRESENT: alert, awake, oriented to person, oriented to place, oriented to time, oriented to situation, CN II-XII grossly intact. ABSENT: motor sensory deficit Psychiatric exam: PRESENT: appropriate affect, normal mood. ABSENT: homicidal ideation, suicidal ideation Skin exam: PRESENT: dry, intact, warm. ABSENT: cyanosis, rash Results Laboratory Results: 04/14/19 06:14 04/14/19 06:14 04/14/19 04/14/19 06:14 06:14 WBC 4.7 RBC 3.41 L Hgb 10.4 L Hct 30.8 L MCV 90 MCH 30.4 MCHC 33.7 RDW 15.2 H Plt Count 253 Seg Neutrophils % 48.5 Lymphocytes % 38.8 Monocytes % 10.1 Eosinophils % 1.7 Basophils % 0.9 Absolute Neutrophils 2.3 Absolute Lymphocytes 1.8 Absolute Monocytes 0.5 Absolute Eosinophils 0.1 Absolute Basophils 0.0 Sodium 142.2 Potassium 3.9 Chloride 115 H Carbon Dioxide 22 Anion Gap 5 BUN 16 Creatinine 1.07 Est GFR ( Amer) > 60 Est GFR (Non-Af Amer) 50 L Glucose 87 Calcium 9.2 Magnesium 2.0 Total Bilirubin 0.4 AST 16 ALT 16 Alkaline Phosphatase 83 Total Protein 5.6 L Albumin 3.0 L 04/12/19 04/13/19 04/13/19 19:30 01:21 01:21 Creatine Kinase 186 H CK-MB (CK-2) 1.46 1.21 Troponin I < 0.012 < 0.012 04/13/19 04/13/19 04/13/19 07:02 07:02 12:56 Creatine Kinase 151 H 134 CK-MB (CK-2) 0.98 Troponin I < 0.012 04/13/19 12:56 Creatine Kinase CK-MB (CK-2) 1.10 Troponin I < 0.012 Impressions: Chest X-Ray 04/12/19 17:55 IMPRESSION: NO ACUTE RADIOGRAPHIC FINDING IN THE CHEST. Assessment and Plan - Diagnosis (1) Chest pain Qualifiers: Chest pain type: unspecified Qualified Code(s): R07.9 - Chest pain, unspecified Is this a current diagnosis for this admission?: Yes Plan: Denies any anginal symptoms. Most likely noncardiac however she has HEART Score 4 04/13/2019: SBP 48606, T-max 98.5, pulse 70s, RR 14-23, SPO2 100% on RA. Troponins < 0.0122, DAPT, beta-blockers, MANOLO, supplemental oxygen, PRN morphine, sublingual nitrates. Pending a stress test. (2) HLD (hyperlipidemia) Qualifiers: Hyperlipidemia type: unspecified Qualified Code(s): E78.5 - Hyperlipidemia, unspecified Is this a current diagnosis for this admission?: Yes Plan: ASCVD Score 18.4% Start high intensity statins. Continue diet and lifestyle modification. TSH/T3/T4 within normal limits. (3) HTN (hypertension) Qualifiers: Hypertension type: essential hypertension Qualified Code(s): I10 - Essential (primary) hypertension Is this a current diagnosis for this admission?: Yes Plan: Normotensive, euvolemic. 04/13/2019: SBP 65284, T-max 98.5, pulse 70s, RR 14-23, SPO2 100% on RA. Troponins < 0.0122, Restart home meds, titrate as needed. Outpatient PCP follow-up. (4) Coronary artery disease Qualifiers: Coronary Disease-Associated Artery/Lesion type: [place] artery [place] vs. transplanted heart: [place] heart Associated angina: angina presence unspecified Qualified Code(s): I25.10 - Atherosclerotic heart disease of [place] coronary artery without angina pectoris Is this a current diagnosis for this admission?: Yes Plan: Restart DAPT, beta-blockers, MANOLO, statins. 04/13/2019: SBP 90990, T-max 98.5, pulse 70s, RR 14-23, SPO2 100% on RA. Troponins < 0.0122, Thyroid panel negative. (5) Tobacco use disorder, severe, dependence Is this a current diagnosis for this admission?: Yes Plan: Counseled on quitting. Continue NicoDerm patch.
[2019-04-15] MEDS: PANTOPRAZOLE SODIUM 40 MG TABLET.DR PO SCH (06:00)
[2019-04-15] MEDS: HEPARIN SOD (PORCINE) 5,000 UNIT/ML 1 ML SYRINGE SUBCUT SCH ×2 (06:00→13:31)
[2019-04-15] MEDS: ALLOPURINOL 300 MG TABLET PO SCH (10:30)
[2019-04-15] MEDS: METOPROLOL TARTRATE 25 MG TABLET PO SCH (10:30)
[2019-04-15] MEDS: LISINOPRIL 5 MG TABLET PO SCH (10:31)
[2019-04-15] MEDS: CLOPIDOGREL BISULFATE 75 MG TABLET PO SCH (10:31)
[2019-04-15] MEDS: DOCUSATE SODIUM 100 MG CAPSULE PO SCH (10:31)
[2019-04-15] MEDS: ASPIRIN 81 MG TABLET, ENT COATED PO SCH (10:31)
[2019-04-15] MEDS: FAMOTIDINE 20 MG TABLET PO SCH (10:31)
[2019-04-15] MEDS ORDERED: REGADENOSON INJ 0.4 MG/5 ML DISP.SYRIN IV ONE (10:45)
[2019-04-15] MEDS ORDERED: LIDOCAINE 5% (700 MG) TRANSDERMAL ADH..PATCH TP ONE (11:00)
[2019-04-15 15:51] VITALS: BP 140/59
--- NOTE | 2019-04-15 20:09 | DRAGON STRESS TEST REPORT ---
2 Day Intravenous Lexiscan Cardiolite stress test using single photon emmision computerized tomography. Date of Resting procedure: 04/14/2019. Date of Stress procedure: 04/15/2019.Ordering Provider: Dr. Paul. Indication: Chest pain. Coronary risk factors: Age, hypertension, dyslipidemia, and tobacco abuse disorder. Resting EKG: Sinus Rhythm. Nonspecific T wave changes diffuse Stress EKG: No changes of ischemia. The patient had no chest pain or discomfort, and there were no arrhythmias seen. Reason for termination: Protocol. Conclusions: Normal EKG and hemodynamic response to IV Lexiscan. Nuclear data: At rest, on 04/14/2019, the patient was given 11.82 millicuries of technetium 99m sestamibi injected intravenously. As per protocol rest gated SPECT images were obtained. Subsequently, on 04/15/2019, the patient was given intravenous Lexiscan at a dose of 0.4 mg in 5 mL intravenously, followed by flush with normal saline. Subsequently the stress dose of 41.2 millicuries of technetium 99m sestamibi was injected intravenously on 04/15/2019. As per protocol stress gated images were obtained. Nuclear interpretation: Review of images showed that all segments of the myocardium had normal perfusion at rest, and normal perfusion post stress with IV Lexiscan. All segments of the myocardium had normal motion, contraction, and thickening by gated study. T. I D. ratio was normal at 0.99. There was no transient ischemic dilatation of the left ventricle. Computer read rest, and stress left ventricular ejection fraction were 64 %, and 72 %, respectively. Conclusion: 1. There is no scintigraphic evidence of Lexiscan induced myocardial ischemia. 2. There is no scintigraphic evidence of myocardial infarction/scar. RECOMMENDATION: aggressive risk factor modification, and treatment of underlying comorbidities. MTDD
--- NOTE | 2019-04-24 23:46 | PDOC DISCHARGE SUMMARY ---
General - Admit/Disc Date/PCP Admission Date/Primary Care Provider: 04/12/19 21:18 YOU SCHAFER MD Discharge Date: 04/15/19 - Discharge Diagnosis (1) Chest pain Is this a current diagnosis for this admission?: Yes (2) HLD (hyperlipidemia) Is this a current diagnosis for this admission?: Yes (3) HTN (hypertension) Is this a current diagnosis for this admission?: Yes (4) Coronary artery disease Is this a current diagnosis for this admission?: Yes (5) Tobacco use disorder, severe, dependence Is this a current diagnosis for this admission?: Yes - Additional Information Resuscitation Status: Full Code Discharge Diet: As Tolerated Discharge Activity: Activity As Tolerated Home Medications: Allopurinol [Zyloprim 300 mg Tablet] 300 mg PO DAILY 04/13/19 Aspirin [Ecotrin 81 mg EC Tablet] 81 mg PO DAILY 04/13/19 Budesonide [Pulmicort 180 mcg Flexhaler] 1 puff IH DAILY 04/13/19 Clopidogrel Bisulfate [Plavix 75 mg Tablet] 75 mg PO DAILY 04/13/19 Diclofenac Sodium [Voltaren] 75 mg PO BID 04/13/19 Lisinopril/Hydrochlorothiazide [Lisinopril-Hctz 20-25 mg Tab] 1 each PO DAILY 04/13/19 Metoprolol Succinate [Toprol Xl 25 mg Tab.sr] 25 mg PO DAILY 04/13/19 Pantoprazole Sodium [Protonix [address] Tablet] 40 mg PO Q6AM 04/13/19 History of Present Illness History of Present Illness: WENCESLAO HAYES is a 73 year old female who presented to the emergency room with a 12-hour history of continuous chest pain initially beginning in the right anterior chest moving around gradually throughout the day first to the right shoulder and back and then gradually to the left shoulder and currently to the left side in the axillary area and now radiating into her left and mid back. She describes the pain as a moderate to severe "sharp pain" intensified by movement of her chest, arms or back. She has not identified any ameliorating factors. She notes associated mild swelling of her lower extremities and mild dyspnea with exertion but denies dyspnea at rest. She admits similar prior episodes related to her coronary artery disease. In the emergency room she was found to have negative cardiac enzymes and her EKG showed no evidence of acute myocardial infarction or ischemia. Her chest x-ray and the remainder of her laboratory evaluation were unremarkable. Due to her personal history of coronary artery disease she is admitted to observation status for serial cardiac enzyme testing and serial EKGs. 04/13/2019. No acute events overnight. She has not had recurrence of her chest pain however she is stating that she her chest pain is constant, sharp, worse with movement and coughing, today was on the right side and moved to the left side and radiating to the left shoulder. Denies any fever, cough, chills, nausea, vomiting, diarrhea, constipation or any urinary symptoms. SBP 92357, T-max 98.5, pulse 70s, RR 14-23, SPO2 100% on RA. WBC 7.0, hemoglobin 10.3, platelets 299, sodium 143, potassium 3.7, bicarb 22, creatinine 1.10, troponins < 0.0122, 04/14/2019. No acute events overnight. Denies any recurrence of chest pain. Denies any fever, chills, nausea, vomiting, diarrhea, constipation or any urinary symptoms. Pending stress test. Hospital Course Hospital Course: (1) Chest pain Most likely noncardiac however she has HEART Score 4. Nuclear stress test negative. 04/13/2019: SBP 02593, T-max 98.5, pulse 70s, RR 14-23, SPO2 100% on RA. Troponins < 0.0122, DAPT, beta-blockers, MANOLO, supplemental oxygen, PRN morphine, sublingual nitrates. (2) HLD (hyperlipidemia) ASCVD Score 18.4% Start high intensity statins. Continue diet and lifestyle modification. TSH/T3/T4 within normal limits. (3) HTN (hypertension) Normotensive, euvolemic. 04/13/2019: SBP 68967, T-max 98.5, pulse 70s, RR 14-23, SPO2 100% on RA. Troponins < 0.0122, Restart home meds, titrate as needed. Outpatient PCP follow-up. (4) Coronary artery disease Restart DAPT, beta-blockers, MANOLO, statins. 04/13/2019: SBP 34834, T-max 98.5, pulse 70s, RR 14-23, SPO2 100% on RA. Troponins < 0.0122, Thyroid panel negative. (5) Tobacco use disorder, severe, dependence Counseled on quitting. Continue NicoDerm patch. Physical Exam Vital Signs: Temp Pulse Resp BP Pulse Ox 97.6 F 58 L 17 132/59 H 99 04/15/19 15:35 04/15/19 15:35 04/15/19 15:35 04/15/19 15:35 04/15/19 15:35 General appearance: PRESENT: no acute distress, well-developed, well-nourished Head exam: PRESENT: atraumatic, normocephalic Eye exam: PRESENT: conjunctiva pink, EOMI, PERRLA. ABSENT: scleral icterus Ear exam: PRESENT: normal external ear exam Mouth exam: PRESENT: moist, tongue midline Neck exam: ABSENT: carotid bruit, JVD, lymphadenopathy, thyromegaly Respiratory exam: PRESENT: clear to auscultation dago. ABSENT: rales, rhonchi, wheezes Cardiovascular exam: PRESENT: RRR. ABSENT: diastolic murmur, rubs, systolic murmur Pulses: PRESENT: normal dorsalis pedis pul Vascular exam: PRESENT: normal capillary refill GI/Abdominal exam: PRESENT: normal bowel sounds, soft. ABSENT: distended, guarding, mass, organolmegaly, rebound, tenderness Rectal exam: PRESENT: deferred Extremities exam: PRESENT: full ROM. ABSENT: calf tenderness, clubbing, pedal edema Neurological exam: PRESENT: alert, awake, oriented to person, oriented to place, oriented to time, oriented to situation, CN II-XII grossly intact. ABSENT: motor sensory deficit Psychiatric exam: PRESENT: appropriate affect, normal mood. ABSENT: homicidal ideation, suicidal ideation Skin exam: PRESENT: dry, intact, warm. ABSENT: cyanosis, rash Results Laboratory Results: 04/14/19 06:14 04/14/19 06:14 04/12/19 04/13/19 04/13/19 19:30 01:21 01:21 Creatine Kinase 186 H CK-MB (CK-2) 1.46 1.21 Troponin I < 0.012 < 0.012 04/13/19 04/13/19 04/13/19 07:02 07:02 12:56 Creatine Kinase 151 H 134 CK-MB (CK-2) 0.98 Troponin I < 0.012 04/13/19 12:56 Creatine Kinase CK-MB (CK-2) 1.10 Troponin I < 0.012 Impressions: Chest X-Ray 04/12/19 17:55 IMPRESSION: NO ACUTE RADIOGRAPHIC FINDING IN THE CHEST. Qualifiers - * PATIENT BEING DISCHARGED WITH ANY OF THE FOLLOWING DIAGNOSIS: No Acute Heart Failure Is this a Heart Failure Patient?: No
== END 2019-04-15 16:44 | disposition home or self-care (01) ==
LOC: ER 17:04 → EH 21:18 → 5 23:51
PROVIDERS: ADMIT Emergency Medicine; ATTEND Emergency Medicine
DX: R07.9 Chest pain, unspecified (principal); E87.0 Hyperosmolality and hypernatremia; E11.9 Type 2 diabetes mellitus without complications; E78.5 Hyperlipidemia, unspecified; I10 Essential (primary) hypertension; I25.10 Atherosclerotic heart disease of native coronary artery without angina pectoris; Z79.899 Other long term (current) drug therapy; Z79.82 Long term (current) use of aspirin; I25.2 Old myocardial infarction; Z88.0 Allergy status to penicillin
CPT/HCPCS: 93005 ×2; 99285; 96374; 36415 ×3; 84439; 82553 ×2; 82550; 83690; 83735 ×2; 84443; 85025 ×2; 85027; 80048; 80053 ×2; 81001; 84484 ×2; 84481; 83036; 80061; 93017; 71046; 78452; 93010 ×2; G0378 ×4; A9500; A9270 ×22; J2785; J1644 ×3; J2270; J3490 ×2; J2405; Q9969

== ENCOUNTER → 2020-09-20 | Outpatient (CLI) | payer MEDICARE, MEDICAID ==
--- NOTE | 2020-09-20 18:16 | XCELERA REPORT ---
[address] [address] Transthoracic Echocardiogram Report Name: WENCESLAO HAYES Age: 74 yrs Gender: Female : 1945 Patient Status: Outpatient Patient Location: RAD Study Date: 09/20/2020 07:09 AM History: CAD Height: 66 in Weight: 172 lb BSA: 1.9 m2 Procedure: A complete two-dimensional transthoracic echocardiogram was performed (2D, M-mode, spectral and color flow Doppler). The study was technically difficult with many images being suboptimal in quality. Reason For Study: CAD Previous Evaluation: No previous studies were available. History: CAD. Ordering Physician: ORION MENDES Performed By: Dora Parker Interpretation Summary Left ventricular systolic function is normal. The Ejection Fraction estimate is 55-60% The right ventricle is normal in size and function. Small mobile echogenic structure noted on septal mitral valve leaflet-clinical correlation is advised, There is no mitral valve stenosis. There is a trace amount of mitral regurgitation There is no aortic valve stenosis There is a trace to mild amount of aortic regurgitation There is mild pulmonary hypertension by echo There is a mild amount of tricuspid regurgitation There is no pericardial effusion. MMode/2D Measurements & Calculations RVDd: 2.0 cm LVIDd: 4.6 cm FS: 36.1 % Ao root diam: 2.7 cm IVSd: 0.61 cm LVIDs: 2.9 cm EDV(Teich): Ao root area: LVPWd: 0.79 cm 97.2 ml 5.8 cm2 ESV(Teich): 33.3 ml EF(Teich): 65.8 % EDV(MOD-sp4): SV(MOD-sp4): 54.7 ml 35.1 ml ESV(MOD-sp4): 19.6 ml EF(MOD-sp4): 64.2 % Doppler Measurements & Calculations MV E max judie: MV dec slope: Ao V2 max: AI max judie: 82.0 cm/sec 141.8 cm/sec 384.1 cm/sec MV A max judie: 424.3 cm/sec2 Ao max PG: AI max P.1 mmHg 98.1 cm/sec MV dec time: 8.0 mmHg 0.19 sec AI dec slope: MV E/A: 0.84 158.9 cm/sec2 AI P1/2t: 708.0 msec LV V1 max PG: PA V2 max: TR max judie: 4.0 mmHg 82.6 cm/sec 265.1 cm/sec LV V1 max: PA max P.7 mmHg TR max P.4 cm/sec 28.2 mmHg Left Ventricle The left ventricle is normal in size. There is borderline concentric left ventricular hypertrophy. Left ventricular systolic function is normal. The Ejection Fraction estimate is 55-60%. Doppler measurements suggest impaired left ventricular relaxation, which is associated with grade I/IV or mild diastolic dysfunction. No regional wall motion abnormalities noted. Right Ventricle The right ventricle is normal in size and function. Atria The right atrium is normal. The left atrial size is normal. The interatrial septum is intact with no evidence for an atrial septal defect. There is no Doppler evidence for an interatrial shunt. Mitral Valve The mitral valve leaflets are sclerotic and show some degree of functional abnormality. Small mobile echogenic structure noted on septal mitral valve leaflet-clinical correlation is advised,. There is no mitral valve stenosis. There is a trace amount of mitral regurgitation. Aortic Valve The aortic valve is sclerotic and shows some degree of functional abnormality. The aortic valve is mildly calcified. The aortic valve opens well. The aortic valve is trileaflet. There is no aortic valve stenosis. There is a trace to mild amount of aortic regurgitation. Tricuspid Valve The tricuspid valve is normal in structure and function. There is a mild amount of tricuspid regurgitation. Right ventricular systolic pressure is estimated to be elevated at 30-40mmHg. There is mild pulmonary hypertension by echo. Pulmonic Valve The pulmonic valve is normal in structure and function. There is no pulmonic valvular stenosis. There is a trace amount of pulmonic regurgitation. Great Vessels The aortic root is normal size. The inferior vena cava appeared normal and decreased > 50% with respiration (RAP 5-10 mmHg). Effusions There is no pericardial effusion. : ORION MENDES Anil
== END ==
LOC: RAD 08:00
PROVIDERS: ATTEND Family Medicine
DX: I25.10 Atherosclerotic heart disease of native coronary artery without angina pectoris (principal)
CPT/HCPCS: 93306